=== PATIENT | male | born 1965 | race African-American/Black ===

== ENCOUNTER 2016-08-07 15:07 | Emergency (ER) | payer MEDICARE, MEDICAID ==
[~2016-08-07] VITALS: Ht 188 cm; Wt 127.0 kg
[~2016-08-07 15:07] MED LIST: HYDR12.58 PO
[2016-08-07 15:52] VITALS: BP 175/81
[2016-08-07] MEDS ORDERED: CEPH500C PO (16:25)
--- NOTE | 2016-08-07 16:25 | PHYS DOC ---
Past Medical History Past Medical History: High Cholesterol, Hypertension Past Surgical History: No Surgical History Alcohol Use: None Drug Use: None Adult General Chief Complaint Chief Complaint: TOE PROBLEM HPI HPI Patient is a 51 year old male presents the emergency room with complaint of discoloration and erosion of the toenail of his left great toe for approximately one week. Patient does not recall any injury to his toe. He denies any history of cardiovascular problems, peripheral vascular problems or diabetes. Review of Systems Review of Systems Constitutional: Denies fever or chills [] Eyes: Denies change in visual acuity, redness, or eye pain [] HENT: Denies nasal congestion or sore throat [] Respiratory: Denies cough or shortness of breath [] Cardiovascular: No additional information not addressed in HPI [] GI: Denies abdominal pain, nausea, vomiting, bloody stools or diarrhea [] : Denies dysuria or hematuria [] Musculoskeletal: Denies back pain or joint pain [] Integument: Denies rash or skin lesions [] Neurologic: Denies headache, focal weakness or sensory changes [] Endocrine: Denies polyuria or polydipsia [] Allergies Allergies Allergies Coded Allergies Type Severity Reaction Last Updated Verified No Known Drug Allergies 11/06/15 No Physical Exam Physical Exam Constitutional: Well developed, well nourished, no acute distress, non-toxic appearance. [] HENT: Normocephalic, atraumatic, bilateral external ears normal, oropharynx moist, no oral exudates, nose normal. [] Eyes: PERRLA, EOMI, conjunctiva normal, no discharge. [] Neck: Normal range of motion, no tenderness, supple, no stridor. [] Cardiovascular:Heart rate regular rhythm, no murmur [] Lungs & Thorax: Bilateral breath sounds clear to auscultation [] Abdomen: Bowel sounds normal, soft, no tenderness, no masses, no pulsatile masses. [] Skin: Left great toe with discoloration around the borders of the toe itself most consistent with unroofing of the toenail from the nail bed itself. There is erosion of the toenail at the base. There is no purulent drainage, inflammation, erythema or ascending lymphangitis. Negative KNAVELs. Back: No tenderness, no CVA tenderness. [] Extremities: No tenderness, no cyanosis, no clubbing, ROM intact, no edema. Skin is pink, warm and dry. There are no dystrophic changes to the hair or skin itself. Patient has strong, regular dorsalis pedis and posterior tibialis pulse. Capillary refill is less than 2 seconds in the toes. Neurologic: Alert and oriented X 3, normal motor function, normal sensory function, no focal deficits noted. [] Psychologic: Affect normal, judgement normal, mood normal. [] Current Patient Data Vital Signs Vital Signs Date Time Temp Pulse Resp B/P Pulse Ox O2 Delivery O2 Flow Rate FiO2 08/07/16 15:52 98.5 83 18 99 Room Air 98.5 Lab Values Laboratory Tests Test 08/07/16 16:17 Glucose (Fingerstick) 119mg/dL (70-99) H EKG EKG [] Radiology/Procedures Radiology/Procedures [] Course & Med Decision Making Course & Med Decision Making Pertinent Labs and Imaging studies reviewed. (See chart for details) [] Dragon Disclaimer Dragon Disclaimer This electronic medical record was generated, in whole or in part, using a voice recognition dictation system. Departure Departure Impression: Primary Impression: Toenail deformity Disposition: 01 HOME, SELF-CARE Condition: GOOD Referrals: NO PCP (PCP) Patient Instructions: Fingernail or Toenail Loss Additional Instructions: 1. Take the medication as prescribed. Your blood sugar today is 119. This is a normal random glucose test. 2. Review the discharge instructions for reasons to return to the emergency room. 3. Pamphlet is provided for you for assistance in finding a primary care doctor in which to follow-up within the next 7-10 days. There is the possibility that you may be referred to a warm in worker after your reevaluation is done. Scripts Cephalexin 500 Mg Capsule1 Cap PO TID #30 CAP Prov:ESEQUIEL AUSTIN 08/07/16 ESEQUIEL AUSTIN Aug 07, 2016 16:25
== END 2016-08-07 16:32 | disposition home or self-care (01) ==
LOC: ER 15:07
DX: L60.8 Other nail disorders (principal); I10 Essential (primary) hypertension; E78.00 Pure hypercholesterolemia, unspecified
CPT/HCPCS: 82947; 99283

== ENCOUNTER → 2017-12-26 | Outpatient (CLI) | payer MEDICARE, MEDICAID ==
[2017-12-26 09:09] LABS: HEMATOCRIT 43.7 % (39.0-53.0); HEMOGLOBIN 15.3 g/dL (13.0-17.5); MEAN CORPUSCULAR HEMOGLOBIN 32 pg (25-35); MEAN CORPUSCULAR HGB CONC 35 g/dL (31-37); MEAN CORPUSCULAR VOLUME 92 fL (79-100); PLATELET COUNT 250 x10^3/uL (140-400); RED BLOOD COUNT 4.77 x10^6/uL (4.30-5.70); RED CELL DISTRIBUTION WIDTH 12.7 % (11.5-14.5); WHITE BLOOD COUNT 6.8 x10^3/uL (4.0-11.0)
[2017-12-26 09:15] LABS: ALBUMIN 4.1 g/dL (3.4-5.0); ALBUMIN/GLOBULIN RATIO 1.1 (1.0-1.7); ALK PHOS 103 U/L (46-116); ALT (SGPT) 43 U/L (16-63); ANION GAP 7 (6-14); AST (SGOT) 24 U/L (15-37); BLOOD UREA NITROGEN 15 mg/dL (8-26); BUN/CREATININE RATIO 12 (6-20); CALCIUM 9.3 mg/dL (8.5-10.1); CARBON DIOXIDE 31 mmol/L (21-32); CHLORIDE 102 mmol/L (98-107); CHOLESTEROL 98 mg/dL (0-200); CREATININE 1.3 mg/dL (0.7-1.3); GFR 69.9; GLUCOSE 99 mg/dL (70-99); HDLC 44 mg/dL (40-60); LDLC 37 mg/dL (0-100); NON-HDL CHOLESTEROL 54 mg/dL (0-129); POTASSIUM 3.7 mmol/L (3.5-5.1); SODIUM 140 mmol/L (136-145); TOTAL BILIRUBIN 2.1 mg/dL (0.2-1.0); TOTAL PROTEIN 7.8 g/dL (6.4-8.2); TRIGLYCERIDES 85 mg/dL (0-150); VLDLC 17 mg/dL (0-40)
[2017-12-26 09:19] LABS: CHOLESTEROL/HDL RATIO 2.2
[2017-12-26 09:25] LABS: THYROID STIM HORMONE (TSH) 1.295 uIU/mL (0.358-3.74)
[2017-12-26 09:39] LABS: PROSTATE SPECIFIC ANTIGEN 1.33 ng/mL (0.00-4.00)
[2017-12-26 11:28] LABS: BILIRUBIN,URINE NEGATIVE (NEG); CLARITY,URINE TURBID; COLOR,URINE YELLOW; GLUCOSE,URINE NEGATIVE (NEG); NITRITE,URINE NEGATIVE (NEG); PH,URINE 5.5; PROTEIN,URINE NEGATIVE (NEG-TRACE)
[2017-12-26 12:16] LABS: BACTERIA,URINE 0 /HPF (0-FEW); RBC,URINE 0 /HPF (0-2); SQUAMOUS EPITHELIAL CELL,UR FEW /LPF; WBC,URINE 0 /HPF (0-4)
[2017-12-26 18:14] LABS: TESTOSTERONE TOTAL 410 ng/dL (264-916)
== END | disposition home or self-care (01) ==
LOC: LAB 08:31
DX: Z12.5 Encounter for screening for malignant neoplasm of prostate (principal); I10 Essential (primary) hypertension; E66.9 Obesity, unspecified; E80.6 Other disorders of bilirubin metabolism; E78.00 Pure hypercholesterolemia, unspecified
CPT/HCPCS: 36415; 80053; 80061; 81001; 84403; 84443; 85027; G0103

== ENCOUNTER 2018-08-11 13:29 | Emergency (ER) | payer MEDICARE, MEDICAID ==
[~2018-08-11] VITALS: Ht 188 cm; Wt 127.0 kg
[~2018-08-11 13:29] MED LIST changes: +CEPH500C PO
[2018-08-11 14:20] VITALS: BP 155/70
[2018-08-11] MEDS ORDERED: IBUP-1007 PO (14:29)
[2018-08-11] MEDS ORDERED: HYDR-3164 PO (14:29)
--- NOTE | 2018-08-11 14:32 | PHYS DOC ---
Past Medical History Past Medical History: High Cholesterol, Hypertension Past Surgical History: No Surgical History Alcohol Use: None Drug Use: None Adult General Chief Complaint Chief Complaint: DENTAL PROBLEM HPI HPI Patient is a 53 year old male who presents with right upper back tooth is broken. He's had pain for the last 2 days. He rates his pain a 10 out of 10. States he is not taking any medication for the pain. He denies nausea, vomiting , fevers. He is eating and drinking appropriately. Review of Systems Review of Systems Constitutional: Denies fever or chills [] Eyes: Denies change in visual acuity, redness, or eye pain [] HENT: Denies nasal congestion or sore throat. Dental pain [] Respiratory: Denies cough or shortness of breath [] Cardiovascular: No additional information not addressed in HPI [] GI: Denies abdominal pain, nausea, vomiting, bloody stools or diarrhea [] : Denies dysuria or hematuria [] Musculoskeletal: Denies back pain or joint pain [] Integument: Denies rash or skin lesions [] Neurologic: Denies headache, focal weakness or sensory changes [] All other systems were reviewed and found to be within normal limits, except as documented in this note. Allergies Allergies Allergies Coded Allergies Type Severity Reaction Last Updated Verified No Known Drug Allergies 11/06/15 No Physical Exam Physical Exam Constitutional: Well developed, well nourished, no acute distress, non-toxic appearance. [] HENT: Normocephalic, atraumatic, bilateral external ears normal, oropharynx moist, no oral exudates, nose normal. Dental caries[] Eyes: PERRLA, EOMI, conjunctiva normal, no discharge. [] Neck: Normal range of motion, no tenderness, supple, no stridor. [] Cardiovascular:Heart rate regular rhythm, no murmur [] Lungs & Thorax: Bilateral breath sounds clear to auscultation [] Abdomen: Bowel sounds normal, soft, no tenderness, no masses, no pulsatile masses. [] Skin: Warm, dry, no erythema, no rash. [] Back: No tenderness, no CVA tenderness. [] Extremities: No tenderness, no cyanosis, no clubbing, ROM intact, no edema. [] Neurologic: Alert and oriented X 3, normal motor function, normal sensory function, no focal deficits noted. [] Psychologic: Affect normal, judgement normal, mood normal. [] Current Patient Data Vital Signs Vital Signs Date Time Temp Pulse Resp B/P (MAP) Pulse Ox O2 Delivery O2 Flow Rate FiO2 08/11/18 14:20 97.6 69 14 155/70 (98) 95 Room Air 97.6 EKG EKG [] Radiology/Procedures Radiology/Procedures [] Course & Med Decision Making Course & Med Decision Making Patient is a 53 year old male who presents with right upper back tooth is broken. He's had pain for the last 2 days. He rates his pain a 10 out of 10. States he is not taking any medication for the pain. He denies nausea, vomiting , fevers. He is eating and drinking appropriately. Alert and oriented. Skin pink warm and dry. Mucous membranes moist. Gum line is slightly reddened but there is no swelling there is no facial swelling. There is no pain with palpation to the gumline the face. Patient was given pain medication and dental resources. Staff Physician Addendum: I was working in the ER during the course of this patient's visit. I was available for consultation as needed, but I was not directly involved in the care of this patient. Dragon Disclaimer Dragon Disclaimer This electronic medical record was generated, in whole or in part, using a voice recognition dictation system. Departure Departure Impression: Primary Impression: Pain, dental Disposition: HOME, SELF-CARE Condition: STABLE Referrals: SABRA YOUNGER MD (PCP) Patient Instructions: Dental Caries, Dental Pain Additional Instructions: CALL A DENTIST ON SUNDAY. TAKE MEDICATIONS PRESCRIBED. Scripts Ibuprofen (IBUPROFEN) 600 Mg Tablet 600 MG PO PRN Q6HRS PRN for INFLAMMATION, #20 TAB Prov: JUAN MARTÍNEZ APRN 08/11/18 Hydrocodone/Apap 5-325 (NORCO 5-325 TABLET) 1 Each Tablet 1 TAB PO PRN Q6HRS PRN for PAIN, #10 TAB 0 Refills Prov: JUAN MARTÍNEZ APRN 08/11/18 JUAN MARTÍNEZ APRN Aug 11, 2018 14:32 MALVIN SOUSA MD Aug 11, 2018 15:25
== END 2018-08-11 14:35 | disposition home or self-care (01) ==
LOC: ER 13:29
DX: K08.89 Other specified disorders of teeth and supporting structures (principal); I10 Essential (primary) hypertension; E78.00 Pure hypercholesterolemia, unspecified
CPT/HCPCS: 99283

== ENCOUNTER 2018-08-31 21:11 | Emergency (ER) | payer MEDICAID, MEDICARE ==
[~2018-08-31] VITALS: Ht 188 cm; Wt 127.0 kg
[~2018-08-31 21:11] MED LIST changes: +HYDR-3164 PO; +IBUP-1007 PO
[2018-08-31] MEDS ORDERED: IBUP-1007 PO (21:37)
[2018-08-31] MEDS ORDERED: HYDR-3164 PO (21:37)
[2018-08-31] MEDS ORDERED: ORPH100T PO (21:37)
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
[2018-08-31 21:39] VITALS: BP 133/84
[2018-08-31] MEDS ORDERED: IBUPROFEN 400 MG TABLET. PO ONE (21:45)
== END 2018-08-31 22:00 | disposition home or self-care (01) ==
LOC: ER 21:11
DX: M54.5 Low back pain (principal); E78.00 Pure hypercholesterolemia, unspecified; I10 Essential (primary) hypertension
CPT/HCPCS: 99283